=== PATIENT | female | born 1990 | race Two or more races ===

== ENCOUNTER 2024-06-08 09:10 | Emergency (ER) | payer OTHER ==
[~2024-06-08] VITALS: Ht 154.9 cm; Wt 68.0 kg
[2024-06-08] MEDS ORDERED: LIDO30AD10 TP (11:27)
[2024-06-08] MEDS ORDERED: CYCL5TAB PO (11:27)
[2024-06-08] MEDS ORDERED: IBUP-1955 PO (11:27)
[2024-06-08 12:23] VITALS: BP 119/75; TEMP 98; O2SAT 99
== END 2024-06-08 12:23 | disposition home or self-care (01) ==
LOC: ER 10:02
DX: S30.1XXA Contusion of abdominal wall, initial encounter (principal); M54.9 Dorsalgia, unspecified; Z79.899 Other long term (current) drug therapy; V89.2XXA Person injured in unspecified motor-vehicle accident, traffic, initial encounter; Y93.89 Activity, other specified; Y92.410 Unspecified street and highway as the place of occurrence of the external cause; Y99.8 Other external cause status
CPT/HCPCS: 71250-TC